=== PATIENT | female | born 1985 | race Hispanic/Latino ===

== ENCOUNTER 2016-04-20 09:12 | Outpatient (CLI) | payer MEDICARE ==
[2016-04-20 09:36] LABS: Basophils % (Auto) 0.6 % (0.0-1.8); Eosinophils % (Auto) 3.3 % (0.0-4.3); Hematocrit 38.2 % (30.3-42.9); Hemoglobin 12.8 gm/dl (10.1-14.3); Mean Corpuscular HGB Conc 34 % (30-34); Mean Corpuscular Hemoglobin 31 pg (28-32); Mean Corpuscular Volume 92 fl (79-97); Platelet Count 226 K/mm3 (140-440); Red Blood Count 4.16 M/mm3 (3.65-5.03); Red Cell Distribution Width 14.4 % (13.2-15.2)
== END 2016-04-20 09:13 | disposition home or self-care (01) ==
LOC: LAB 09:12
PROVIDERS: ATTEND Clinical Nurse Specialist Psychiatric/Mental Health
DX: F31.9 Bipolar disorder, unspecified (principal)
CPT/HCPCS: 36415; 80178; 84443; 85025

== ENCOUNTER 2018-08-10 10:43 | Emergency (ER) | payer MEDICARE ==
[2018-08-10 11:59] VITALS: BP 111/62
--- NOTE | 2018-08-10 12:05 | Emergency Department Report ---
ED Dysuria HPI - HPI Chief Complaint: Upper Respiratory Infection Stated Complaint: FLU SX Time Seen by Provider: 08/10/18 11:35 Location of Discomfort: Other Severity: None Symptoms: Dysuria: No, Frequency: No, Suprapubic Pain: No, Flank Pain: No, Fever: No, Hematuria: No, Abdominal Pain: No, Previous UTI's: No Other History: Patient is a 32-year-old female that comes to us from [facility] where she was in group therapy and states that she started to feel weak. She states that she felt like she was given a pass out. She states that she does this often that she is epileptic and her biopsies caused by stress. Patient has been in and out of [facility] for the past several weeks. 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 She states that she takes daily Tegretol and Seroquel. She is allergic to penicillin and epinephrine. HPI was completed and it is difficult to really get a clear complaint from the patient but at the end of the exam it was concluded that she is worried about 3 things 1 1that she is because she had sex last week. 2- she is concerned that she has pneumonia because somebody else that was an anger has pneumonia. 3 -she is concerned that she has the flu because she's had a cough and she did not flu shot this year. Pt states that she has not relapsed and has not taken any drugs. ED Review of Systems ROS: Stated complaint: FLU SX Other details as noted in HPI Comment: All other systems reviewed and negative ED Past Medical Hx - Past Medical History Previous Medical History?: Yes Hx Seizures: Yes Hx Psychiatric Treatment: Yes ([facility]) - Surgical History Past Surgical History?: No - Family History Family history: no significant - Social History Smoking Status: Current Every Day Smoker Dysuria Exam - Exam General: Vital signs noted. No distress. Alert and acting appropriately. - Head Head exam: Present: atraumatic, normocephalic - Eye Eye exam: Present: normal appearance, EOMI. Absent: nystagmus - ENT ENT exam: Present: normal exam, normal orophraynx, mucous membranes moist, normal external ear exam - Neck Neck exam: Present: normal inspection, full ROM. Absent: tenderness, meningismus - Respiratory Respiratory exam: Present: normal lung sounds bilaterally. Absent: respiratory distress, wheezes, rales, rhonchi, stridor, chest wall tenderness, accessory muscle use, decreased breath sounds, prolonged expiratory - Cardiovascular Cardiovascular Exam: Present: regular rate, normal rhythm, normal heart sounds. Absent: bradycardia, tachycardia, irregular rhythm, systolic murmur, diastolic murmur, rubs, gallop - GI/Abdominal GI/Abdominal exam: Present: soft. Absent: distended, tenderness, guarding, rebound, rigid, pulsatile mass - Rectal Rectal exam: Present: deferred - Extremities Exam Extremities exam: Present: normal inspection, full ROM, other (2+ pulses noted in the bilateral upper extremities. 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 Absent: calf tenderness - Back Exam Back exam: Present: normal inspection, full ROM. Absent: tenderness, CVA tenderness (R), CVA tenderness (L), paraspinal tenderness, vertebral tenderness - Neurological Exam Neurological exam: Present: alert, oriented X3, normal gait, other (Extraocular movements intact. Tongue midline. No facial droop. Facial sensation intact to light touch in the V1, V2, V3 distribution bilaterally. 5 and 5 strength in 4 extremities.. Sensation is intact to light touch in 4 extremities.). Absent: motor sensory deficit - Psychiatric Psychiatric exam: normal affect and mood - Skin Skin exam: Present: warm, dry, intact, normal color. Absent: rash Exam: Yes Moist Mucous Membranes, No CVA Tenderness, No Abdominal Tenderness, No Rigidity or Guarding ED Course Vital Signs 08/10/18 08/10/18 10:49 11:50 Temperature 97.6 F 98.4 F Pulse Rate 95 H 87 Respiratory 16 18 Rate Blood Pressure 135/74 Blood Pressure 111/62 [Right] O2 Sat by Pulse 98 Oximetry ED Medical Decision Making - Medical Decision Making Vital Signs 08/10/18 08/10/18 10:49 11:50 Temperature 97.6 F 98.4 F Pulse Rate 95 H 87 Respiratory 16 18 Rate Blood Pressure 135/74 Blood Pressure 111/62 [Right] O2 Sat by Pulse 98 Oximetry Labs 08/10/18 12:08 Urine Color Yellow Urine Turbidity Clear Urine pH 6.0 Ur Specific Ruby 1.016 Urine Protein <15 mg/dl Urine Glucose (UA) Neg Urine Ketones Neg Urine Blood Neg Urine Nitrite Neg Ur Reducing Substances Not Reportable Urine Bilirubin Neg Urine Ictotest Not Reportable Urine Urobilinogen < 2.0 Ur Leukocyte Esterase Tr Urine WBC (Auto) 1.0 Urine RBC (Auto) < 1.0 U Epithel Cells (Auto) 3.0 Urine Bacteria (Auto) 1+ Urine HCG, Qual Negative PT REASSURED SHE DOES NOT HAVE PNEUMONIA AND THAT SHE IS NOT DC BACK TO [facility] NON [facility]XIC TAKING PO REFERRAL TO PCP FOR ONGOING MEDICAL NEEDS - Differential Diagnosis ro Critical care attestation.: If time is entered above; I have spent that time in minutes in the direct care of this critically ill patient, excluding procedure time. ED Disposition Clinical Impression: Well adult exam Disposition: DC-01 TO HOME OR SELFCARE Is pt being admited?: No Does the pt Need Aspirin: No Condition: Stable Additional Instructions: DIET TOLERATED MEDS ORDERED TODAY IN ER FOLLOW INSTRUCTIONS ON THE BOTTLE FOLLOW UP PCP WITHIN 48 HOURS TO ENSURE YOU ARE GETTING BETTER ACTIVITY TOLERATED MOTRIN OR TYLENOL FOR PAIN OR FEVER RETURN TO THE ER FOR WORSENING SYMPTOMS NOT RELIEVED BY YOUR MEDICATIONS. SAFE SEX NEG NO PNEUMONIA Referrals: [facility] [Outside] - 3-5 Days Time of Disposition: 12:16
[2018-08-10 12:37] LABS: HCG Qualitative,Urine Negative (Negative)
[2018-08-10 12:44] LABS: Bacteria,Urine 1+ /HPF (Negative); Bilirubin,Urine NEG (Negative); Blood,Urine NEG (Negative); Color,Urine Yellow (Yellow); Protein,Urine <15 mg/dL mg/dL (Negative); RBC,Urine < 1.0 /HPF (0.0-6.0); Urobilinogen,Urine < 2.0 mg/dL (<2.0)
== END 2018-08-10 13:05 | disposition home or self-care (01) ==
LOC: ED 10:43
DX: O99.519 Diseases of the respiratory system complicating pregnancy, unspecified trimester (principal); J18.9 Pneumonia, unspecified organism; O99.330 Smoking (tobacco) complicating pregnancy, unspecified trimester; Z3A.00 Weeks of gestation of pregnancy not specified; Z88.0 Allergy status to penicillin
CPT/HCPCS: 81001; 81025; 99283